=== PATIENT | male | born 1985 ===

== ENCOUNTER → 2017-07-14 | Outpatient (CLI) | payer OTHER | END | disposition home or self-care (01) | LOC: PPHC 13:21 | DX: R07.0 Pain in throat (principal) ==

== ENCOUNTER 2017-08-17 16:13 | Outpatient (CLI) | payer OTHER ==
[~2017-08-17] VITALS: Ht 180.3 cm; Wt 99.8 kg
== END 2017-08-17 16:45 | disposition home or self-care (01) ==
LOC: OFIC 805 16:13
DX: E04.1 Nontoxic single thyroid nodule (principal); M54.2 Cervicalgia; J39.2 Other diseases of pharynx

== ENCOUNTER 2017-08-31 10:46 | Outpatient (CLI) | payer OTHER ==
[~2017-08-31] VITALS: Ht 152.4 cm; Wt 99.8 kg
== END 2017-08-31 11:00 | disposition home or self-care (01) ==
LOC: OFIC 805 10:46
DX: M54.2 Cervicalgia (principal); R07.0 Pain in throat; R22.1 Localized swelling, mass and lump, neck

== ENCOUNTER → 2017-09-01 | Outpatient (CLI) | payer OTHER | END | disposition home or self-care (01) | LOC: TOM 07:15 | DX: R22.1 Localized swelling, mass and lump, neck (principal) ==

== ENCOUNTER 2017-09-10 14:55 | Outpatient (CLI) | payer OTHER ==
[~2017-09-10] VITALS: Ht 152.4 cm; Wt 99.8 kg
== END 2017-09-10 15:10 | disposition home or self-care (01) ==
LOC: OFIC 805 14:55
DX: D23.4 Other benign neoplasm of skin of scalp and neck (principal); R07.0 Pain in throat